=== PATIENT | male | born 1945 | race African-American/Black ===

== ENCOUNTER → 2017-01-29 | Outpatient (CLI) | payer OTHER ==
[~2017-01-29] MED LIST: LIPITOR20 MG PO; NORVASC5 MG PO; PLENDIL10 MG PO; PRILOSEC20 MG PO; TOPROL XL25 MG PO
[2017-01-29 16:43] LABS: POTASSIUM 3.7 mmol/L (3.5-5.1)
== END | disposition home or self-care (01) ==
LOC: LAB 14:23
PROVIDERS: Family Medicine
DX: I10 Essential (primary) hypertension (principal); E78.00 Pure hypercholesterolemia, unspecified

== ENCOUNTER → 2017-11-05 | Outpatient (CLI) | payer OTHER ==
[2017-11-05 10:54] LABS: ALBUMIN 3.5 gm/dl (3.1-4.5); BASO % 0.2 % (0.0-1.0); CREATININE 1.52 mg/dL (0.70-1.30); EOS # 0.1 10*3/uL (0.0-0.4); EOS % 1.4 % (1.0-4.0); HEMATOCRIT 40.4 % (42.0-52.0); HEMOGLOBIN 12.8 g/dl (14.0-18.0); LYMPH # 1.8 10*3/uL (1.3-4.4); LYMPH % 34.4 % (27.0-41.0); MEAN CELL VOLUME 81.5 fl (80.0-94.0); MEAN CORPUSCULAR HGB 25.8 pg (27.0-31.0); MEAN CORPUSCULAR HGB CONC 31.7 g/dl (33.0-37.0); MEAN PLATELET VOLUME 10.8 fl (9.6-12.3); MONO # 0.5 10*3/uL (0.1-1.0); MONO % 9.8 % (3.0-9.0); NEUT # 2.7 10*3/uL (2.3-7.9); PLATELET COUNT AUTOMATED 233 10*3/uL (130-400); POTASSIUM 3.5 mmol/L (3.5-5.1); RED BLOOD COUNT 4.96 10*6/uL (4.50-5.90); RED CELL DISTRI WIDTH 16.1 % (0-14.5); TOTAL PROTEIN 7.5 gm/dL (6.4-8.2); WHITE BLOOD COUNT 5.1 10*3/uL (4.8-10.8)
[2017-11-05 11:01] LABS: THYROID STIM HORMONE (HS) 1.76 uIU/ml (0.358-4.75)
== END | disposition home or self-care (01) ==
LOC: LAB 09:58
PROVIDERS: Family Medicine
DX: R53.82 Chronic fatigue, unspecified (principal); E78.00 Pure hypercholesterolemia, unspecified

== ENCOUNTER 2018-11-19 03:14 | Emergency (ER) | payer OTHER ==
[~2018-11-19] VITALS: Ht 180.3 cm; Wt 70.3 kg
--- NOTE | ~2018-11-19 | EKG ---
[place], [place] ELECTROCARDIOGRAM REPORT NAME: SREEKANTH DE ANDA UNIT #: [id number] ROOM: DOCTOR: EPIPHANY DRAFT REPORT BIRTHDATE: [birth year] [facility] Test Date: 2018-11-19 Test Time: 03:33:07 Pat Name: SREEKANTH DE ANDA Department: Room: Gender: M Sparker And Patcher: Geir Donahue : 1945 Requested By: LASHONDA MONAHAN Order Number: [id number] Reading MD: Raudel Holder MD Measurements Intervals [place] Rate: 65 P: 74 MT: 166 QRS: 42 QRSD: 84 T: 79 QT: 398 QTc: 414 Interpretive Statements Sinus rhythm Ventricular trigeminy Probable left atrial enlargement Inferior infarct, acute (RCA) Anterolateral infarct, age indeterminate Probable RV involvement, suggest recording right precordial leads Electronically Signed On 11-22-2018 7:53:48 PDT by Raudel Holder MD CM:EKGRPT:ELECTROCARDIOGRAM REPORT [id number] LASHONDA MONAHAN MD EPIPHANY DRAFT REPORT LASHONDA MONAHAN MD
--- NOTE | ~2018-11-19 | EKG ---
[place], [place] ELECTROCARDIOGRAM REPORT NAME: SREEKANTH DE ANDA UNIT #: [id number] ROOM: DOCTOR: EPIPHANY DRAFT REPORT BIRTHDATE: [birth year] [facility] Test Date: 2018-11-19 Test Time: 03:21:45 Pat Name: SREEKANTH DE ANDA Department: Room: Gender: Kiln Hand: Geri Donahue : 1945 Requested By: LASHONDA MONAHAN Order Number: [id number] Reading MD: Raudel Holder MD Measurements Intervals [place] Rate: 64 P: 81 CO: 160 QRS: 57 QRSD: 94 T: 81 QT: 407 QTc: 420 Interpretive Statements Sinus rhythm Ventricular bigeminy Left ventricular hypertrophy Inferior infarct, acute (RCA) Probable RV involvement, suggest recording right precordial leads Electronically Signed On 11-22-2018 7:53:25 PDT by Raudel Holder MD CM:EKGRPT:ELECTROCARDIOGRAM REPORT [id number] LASHONDA MONAHAN MD EPIPHANY DRAFT REPORT LASHONDA MONAHAN MD
--- NOTE | ~2018-11-19 | EKG ---
[place], [place] ELECTROCARDIOGRAM REPORT NAME: SREEKANTH DE ANDA UNIT #: [id number] ROOM: DOCTOR: EPIPHANY DRAFT REPORT BIRTHDATE: [birth year] [facility] Test Date: 2018-11-19 Test Time: 04:19:30 Pat Name: SREEKANTH DE ANDA Department: Room: Gender: Medical Accounting Clerk: : 1945 Requested By: LASHONDA MONAHAN Order Number: [id number] Reading MD: Raudel Holder MD Measurements Intervals [place] Rate: 63 P: 73 WV: 162 QRS: 57 QRSD: 90 T: 82 QT: 403 QTc: 413 Interpretive Statements Sinus rhythm Multiple ventricular premature complexes Probable left atrial enlargement LVH with secondary repolarization abnormality Inferoposterior infarct, acute (RCA) Anterior infarct, old Probable RV involvement, suggest recording right precordial leads Electronically Signed On 11-22-2018 7:53:54 PDT by Raudel Holder MD CM:EKGRPT:ELECTROCARDIOGRAM REPORT [id number] LASHONDA MONAHAN MD EPIPHANY DRAFT REPORT LASHONDA MONAHAN MD
[2018-11-19 03:34] LABS: BASO % 0.2 % (0.0-1.0); EOS # 0.1 10*3/uL (0.0-0.4); EOS % 0.8 % (1.0-4.0); HEMATOCRIT 40.9 % (42.0-52.0); HEMOGLOBIN 13.2 g/dl (14.0-18.0); LYMPH # 2.8 10*3/uL (1.3-4.4); LYMPH % 30.1 % (27.0-41.0); MEAN CELL VOLUME 82.1 fl (80.0-94.0); MEAN CORPUSCULAR HGB 26.5 pg (27.0-31.0); MEAN CORPUSCULAR HGB CONC 32.3 g/dl (33.0-37.0); MEAN PLATELET VOLUME 10.4 fl (9.6-12.3); MONO # 0.7 10*3/uL (0.1-1.0); MONO % 7.5 % (3.0-9.0); NEUT # 5.7 10*3/uL (2.3-7.9); NEUT % 61.1 % (47.0-73.0); PLATELET COUNT AUTOMATED 260 10*3/uL (130-400); RED BLOOD COUNT 4.98 10*6/uL (4.50-5.90); RED CELL DISTRI WIDTH 16.6 % (0-14.5); WHITE BLOOD COUNT 9.3 10*3/uL (4.8-10.8)
[2018-11-19 04:02] LABS: ACT PARTIAL THROMBO TIME 22.8 SECONDS (20.8-31.5)
[2018-11-19 04:09] LABS: ALBUMIN 3.6 gm/dl (3.1-4.5); CREATININE 1.46 mg/dL (0.70-1.30); POTASSIUM 3.5 mmol/L (3.5-5.1); TOTAL PROTEIN 7.7 gm/dL (6.4-8.2)
[2018-11-19 04:11] LABS: TROPONIN I 0.061 ng/ml (<0.045)
[2019-01-11] MEDS ORDERED: IMDUR SA30 MG PO (14:14)
[2019-01-11] MEDS ORDERED: METOPROLOL SUCC25 M2 PO (14:15)
[2019-01-11] MEDS ORDERED: ATORVASTATIN CA40 M1 PO (14:15)
[2019-01-11] MEDS ORDERED: LORAZEPAM0.5 MG PO (14:16)
[2019-01-13] MEDS ORDERED: AMLODIPINE BESYL5 MG PO (08:08)
[2019-01-13] MEDS ORDERED: Isordil20 MG PO (08:08)
[2019-01-13] MEDS ORDERED: LISINOPRIL10 M1 PO (08:08)
[2019-01-13] MEDS ORDERED: VITAMIN D32000 UNI1 PO (08:08)
== END 2018-11-19 06:42 | disposition short-term general hospital (02) ==
LOC: ED 03:14
PROVIDERS: Emergency Medicine Emergency Medical Services
DX: I24.9 Acute ischemic heart disease, unspecified (principal); R11.10 Vomiting, unspecified; F17.200 Nicotine dependence, unspecified, uncomplicated; Z79.899 Other long term (current) drug therapy

== ENCOUNTER 2018-11-24 12:24 | Inpatient (IN) | payer OTHER ==
[~2018-11-24] VITALS: Ht 180.3 cm; Wt 65.4 kg
[2018-11-24] VITALS (8 sets, daily range): BP systolic 74–125; BP diastolic 52–81
--- NOTE | ~2018-11-24 | EKG ---
[place], [place] ELECTROCARDIOGRAM REPORT NAME: SREEKANTH DE ANDA UNIT #: [id number] ROOM: [facility] DOCTOR: MIRIAN DRAFT REPORT BIRTHDATE: [birth year] [facility] Test Date: 2018-11-24 Test Time: 15:38:06 Pat Name: SREEKANTH DE ANDA Department: Room: [facility] Gender: M Miner Helper: King Schaffer : 1945 Requested By: CAITY BUSTOS Order Number: [id number] Reading MD: Raudel Holder MD Measurements Intervals [place] Rate: 90 P: 60 AR: 146 QRS: 27 QRSD: 86 T: -5 QT: 395 QTc: 484 Interpretive Statements Sinus rhythm Ventricular bigeminy Left ventricular hypertrophy no longer present Myocardial infarct finding no longer present Electronically Signed On 11-25-2018 4:00:21 PDT by Raudel Holder MD CM:EKGRPT:ELECTROCARDIOGRAM REPORT [id number] CAITY WILKERSON DRAFT REPORT CAITY BUSTOS DO
--- NOTE | ~2018-11-24 | EKG ---
[place], [place] ELECTROCARDIOGRAM REPORT NAME: SREEKANTH DE ANDA UNIT #: [id number] ROOM: 502 DOCTOR: MIRIAN DRAFT REPORT BIRTHDATE: [birth year] [facility] Test Date: 2018-11-24 Test Time: 18:34:32 Pat Name: SREEKANTH DE ANDA Department: Room: [facility] Gender: M Medical Educator: King Schaffer : 1945 Requested By: CAITY BUSTOS Order Number: [id number] Reading MD: Raudel Holder MD Measurements Intervals [place] Rate: 62 P: 57 OR: 151 QRS: 23 QRSD: 83 T: -12 QT: 528 QTc: 537 Interpretive Statements Sinus rhythm Ventricular premature complex Probable LVH with secondary repol abnrm Prolonged QT interval Compared to ECG 11/19/2018 04:19:30 Prolonged QT interval now present Myocardial infarct finding no longer present Electronically Signed On 11-29-2018 7:54:37 PDT by Raudel Holder MD CM:EKGRPT:ELECTROCARDIOGRAM REPORT [id number] CAITY WILKERSON DRAFT REPORT CAITY BUSTOS DO
--- NOTE | ~2018-11-24 | CON ---
[place], [place] REPORT OF CONSULTATION NAME: SREEKANTH DE ANDA UNIT #: [id number] ROOM: [facility] DOCTOR: ROSELIA CHILDS MD BIRTHDATE: [birth year] DOS: 11/25/2018 HISTORY OF PRESENT ILLNESS: The patient is very well known to me, elderly gentleman who apparently had a non-ST acute coronary syndrome with ST changes, underwent emergent catheterization last week, basically underwent a stenting of the proximal LAD. The patient did extremely well post-intervention. His creatinine was baseline even the next day. The patient was given about 60 mL of dye. The patient was discharged home in a stable condition. Apparently, the patient did have some diarrhea 2 days ago and also becoming significantly hypotensive. He was on lisinopril, hydrochlorothiazide started by the PCP, which he was continuing. He called us with hypotension and was sent him to the Emergency Room to get evaluated, pressures were significantly low and because of hypotension, the patient's troponin was significantly elevated. The patient was in acute renal failure. The patient has been hydrated and he is improving significantly and the creatinine is improving and he is making urine. He did not have any chest discomfort. No syncope. I did a stat echocardiogram yesterday showed an excellent ejection fraction. No wall motion abnormality, significantly improved from before. No evidence of pericardial effusion or tamponade physiology. PAST MEDICAL HISTORY: Significant for a recent non-ST elevation myocardial infarction, acute coronary syndrome, hypertension and hyperlipidemia. HOME MEDICATIONS: Include Plendil, metoprolol, atorvastatin, lisinopril and hydrochlorothiazide. PAST SURGICAL HISTORY: Recent intervention, ____ surgery. FAMILY HISTORY: Positive for AK and CVA. REVIEW OF SYSTEMS: CONSTITUTIONAL: No fever, no chills. HEENT: No visual disturbance or hearing problems. CARDIOVASCULAR SYSTEM: As per HPI. No chest pain. RESPIRATORY: No shortness of breath. GASTROINTESTINAL: No nausea, no vomiting. GENITOURINARY: No dysuria. NEUROLOGIC: Stable. PHYSICAL EXAMINATION: GENERAL: The patient is alert, oriented x 3. VITAL SIGNS: Blood pressure today is much better 110/70. He is in sinus rhythm. NECK: Supple, no JVD. LUNGS: Clear. HEART: Sounds are regular. NEUROLOGICAL: Stable. LABORATORY DATA: Shows a bigeminal pattern. Echocardiogram revealed an excellent ejection fraction. [place], [place] REPORT OF CONSULTATION NAME: SREEKANTH DE ANDA UNIT #: [id number] ROOM: [facility] DOCTOR: AMADEO AGUDELO,ROSELIA BIRTHDATE: [birth year] LABORATORY DATA: On admission, his creatinine was significantly elevated, today it is much better. His hemoglobin 12.7, hematocrit 38.8. His right groin is stable. Sodium 138, BUN is 97, creatinine is 5.24 which is significantly improved. Troponin was 12 earlier and it is already down to 7.9. IMPRESSION: The acute coronary syndrome with a recent intervention with hypotension secondary to dehydration and diarrhea, elevated troponin, probably demand type secondary to hypotension and acute renal failure secondary to dehydration and hypotension. RECOMMENDATIONS: Discontinue the GIORGIO inhibitors, IV hydration aggressively as the ejection fraction is normal. Once the blood pressure is stable, start him back on the small dose of beta blockers like metoprolol 12.5 b.i.d. Continue the Brilinta and a baby aspirin as ordered. Monitor the renal function closely. Continue the lipid lowering agents and I will follow up. Discussed with the house staff in detail. ROSELAI CHILDS MD CM:CONSTR:REPORT OF CONSULTATION 0719 11/25/18 0750 interface
--- NOTE | ~2018-11-24 | EKG ---
[place], [place] ELECTROCARDIOGRAM REPORT NAME: SREEKANTH DE ANDA UNIT #: [id number] ROOM: [facility] DOCTOR: MIRIAN DRAFT REPORT BIRTHDATE: [birth year] [facility] Test Date: 2018-11-24 Test Time: 12:29:29 Pat Name: SREEKANTH DE ANDA Department: ER Room: [facility] Gender: M Vehicle Return Associate: King Schaffer : 1945 Requested By: CAITY BUSTOS Order Number: [id number] Reading MD: Raudel Holder MD Measurements Intervals [place] Rate: 68 P: 73 MN: 148 QRS: 36 QRSD: 84 T: 1 QT: 376 QTc: 400 Interpretive Statements Sinus rhythm Ventricular bigeminy Probable left atrial enlargement Repol abnrm suggests ischemia, anterolateral Compared to ECG 11/19/2018 04:19:30 Possible ischemia now present Left ventricular hypertrophy no longer present Myocardial infarct finding no longer present Electronically Signed On 11-25-2018 3:59:47 PDT by Raudel Holder MD CM:EKGRPT:ELECTROCARDIOGRAM REPORT [id number] CAITY WILKERSON DRAFT REPORT CAITY BUSTOS DO
[2018-11-24 13:01] LABS: BASO % 0.2 % (0.0-1.0); EOS % 0.3 % (1.0-4.0); HEMATOCRIT 42.4 % (42.0-52.0); HEMOGLOBIN 14.1 g/dl (14.0-18.0); LYMPH # 2.1 10*3/uL (1.3-4.4); LYMPH % 18.3 % (27.0-41.0); MEAN CELL VOLUME 79.5 fl (80.0-94.0); MEAN CORPUSCULAR HGB 26.5 pg (27.0-31.0); MEAN CORPUSCULAR HGB CONC 33.3 g/dl (33.0-37.0); MEAN PLATELET VOLUME 11.7 fl (9.6-12.3); MONO # 0.9 10*3/uL (0.1-1.0); MONO % 7.5 % (3.0-9.0); NEUT # 8.5 10*3/uL (2.3-7.9); NEUT % 73.1 % (47.0-73.0); PLATELET COUNT AUTOMATED 279 10*3/uL (130-400); RED BLOOD COUNT 5.33 10*6/uL (4.50-5.90); WHITE BLOOD COUNT 11.6 10*3/uL (4.8-10.8)
[2018-11-24 13:11] LABS: ACT PARTIAL THROMBO TIME 28.6 SECONDS (20.8-31.5); INTERNATIONAL NORM RATIO 0.9 (2.0-3.5)
--- NOTE | 2018-11-24 13:12 | NUR ---
NOTIFIED BY LAB PTS LACTIC ACID 2.5. DR BUSTOS NOTIFIED.
[2018-11-24 13:20] LABS: ALBUMIN 3.3 gm/dl (3.1-4.5); CREATININE 7.17 mg/dL (0.70-1.30); POTASSIUM 3.8 mmol/L (3.5-5.1); TOTAL PROTEIN 8.6 gm/dL (6.4-8.2)
[2018-11-24 13:24] LABS: TROPONIN I 12.5 ng/ml (<0.045)
--- NOTE | 2018-11-24 13:26 | NUR ---
NOTIFIED BY LAB PTS TROPONIN .. DR BUSTOS NOTIFIED.
--- NOTE | 2018-11-24 15:03 | NUR ---
PT RESTING IN BED FAMILY AT BEDSIDE NO COMPLAINTS AT THIS TIME
--- NOTE | 2018-11-24 15:03 | NUR ---
awaiting nurse to return to floor from another admission
--- NOTE | 2018-11-24 15:20 | NUR ---
A 73, admitted to ICCU, under the services of VINCENT Locke MD with a diagnosis of ARF/ hypotension. Chief complaint is felt as though his BP was low , weakness. Patient arrived via stretcher from ER. Monitor applied. Initial assessment completed. Vital signs taken and recorded. DR. BUZZ AGUDELO,VINCENT notified of admission to the unit. Orders received. See assessment for past medical history, medications and allergies. Patient and/or family oriented to unit. [facility] ICCU visitation policy reviewed. Clothing/patient valuable form completed. PRIYANKA MENARD
[2018-11-24] MEDS ORDERED: BRILINTA90 M1 PO (15:50)
[2018-11-24] MEDS ORDERED: ASPIRIN ADULT L81 M2 PO (15:50)
[2018-11-24] MEDS ORDERED: PANTOPRAZOLE SO40 MG PO (15:50)
[2018-11-24] MEDS ORDERED: LIPITOR40 MG PO (15:51)
[2018-11-24] MEDS ORDERED: ZESTORETIC 10-1 EACH PO (15:53)
--- NOTE | 2018-11-24 16:55 | NUR ---
Dr. Arce was notified of consult and orders were recieved. Dr. Lopez in discussed plan of care w/ pt. and family.
--- NOTE | 2018-11-24 20:05 | NUR ---
PATIENT VOIDED 100ML OF DARK AMENA COLORED URINE AT THIS TIME. PATIENT DENIES PAIN WITH URINATION OR HESITANCY. PATIENT WAS THEN BLADDER SCANNED FOR 15ML OF URINE.
--- NOTE | 2018-11-24 20:10 | NUR ---
CALL OUT TO DR PARRISH REGARDING 8PM LABS, PATIENT VOID AND BLADDER SCANNING. AWAITING RETURN CALL
[2018-11-24 20:13] LABS: ALBUMIN 2.9 gm/dl (3.1-4.5); CREATININE 6.76 mg/dL (0.70-1.30); PHOSPHOROUS 5.1 mg/dL (2.5-4.9); POTASSIUM 3.9 mmol/L (3.5-5.1)
[2018-11-24 20:39] LABS: BILIRUBIN NEGATIVE (NEGATIVE); BLOOD NEGATIVE (NEGATIVE); CLARITY CLEAR (CLEAR); COLOR YELLOW (YELLOW); GLUCOSE NEGATIVE (NEGATIVE); KETONE NEGATIVE (NEGATIVE); LEUKO ESTERASE NEGATIVE (NEGATIVE); NITRITE NEGATIVE (NEGATIVE); SPECIFIC GRAVITY 1.025 (1.005-1.030); UROBILINOGEN 0.2 E.U./dl (0.2-1.0)
[2018-11-24 20:49] LABS: BACTERIA 1+
--- NOTE | 2018-11-24 20:52 | NUR ---
SPOKE TO DR PARRISH REGARDING LABS, AND URINE OUTPUT. NO NEW ORDERS RECIEVED
--- NOTE | 2018-11-24 22:05 | NUR ---
PATIENT ATE BOWL OF TOMATOE SOUP AND 1/4TH OF HAMBURGER. PATIENT STATES "THIS IS THE MOST HE'S ATE IN A WHILE" DENIES ANY COMPLAINTS AT THIS TIME. RN WILL CONTINUE TO MONITOR
[2018-11-25] VITALS: BP 113/72
--- NOTE | 2018-11-25 01:05 | NUR ---
PATIENT RESTING QUIETLY WITH EYES CLOSED AT THIS TIME. DISPLAYS NO SIGNS OR SYMPTOMS OF DISTRESS, RESPIRATIONS ARE QUIET AND UNLABORERD ON ROOM AIR. VITAL SIGNS REMAIN WITHIN NORMAL LIMITS. CALL LIGHT IS WITHIN REACH OF THE PATIENT. RN WILL CONTINUE TO MONITOR
[2018-11-25 04:00] VITALS: BP 100/58
[2018-11-25 05:44] LABS: CREATININE 5.24 mg/dL (0.70-1.30); PHOSPHOROUS 4.6 mg/dL (2.5-4.9); POTASSIUM 3.7 mmol/L (3.5-5.1)
[2018-11-25 05:49] LABS: TROPONIN I 7.94 ng/ml (<0.045)
[2018-11-25 06:15] LABS: BASO % 0.2 % (0.0-1.0); EOS # 0.1 10*3/uL (0.0-0.4); EOS % 0.7 % (1.0-4.0); HEMATOCRIT 38.8 % (42.0-52.0); HEMOGLOBIN 12.7 g/dl (14.0-18.0); LYMPH # 1.4 10*3/uL (1.3-4.4); LYMPH % 16.9 % (27.0-41.0); MEAN CORPUSCULAR HGB 26.2 pg (27.0-31.0); MEAN CORPUSCULAR HGB CONC 32.7 g/dl (33.0-37.0); MEAN PLATELET VOLUME 11.8 fl (9.6-12.3); MONO # 0.6 10*3/uL (0.1-1.0); MONO % 7.7 % (3.0-9.0); NEUT # 6.2 10*3/uL (2.3-7.9); NEUT % 73.9 % (47.0-73.0); PLATELET COUNT AUTOMATED 244 10*3/uL (130-400); RED BLOOD COUNT 4.85 10*6/uL (4.50-5.90); RED CELL DISTRI WIDTH 15.9 % (0-14.5); WHITE BLOOD COUNT 8.3 10*3/uL (4.8-10.8)
[2018-11-25 08:00] VITALS: BP 115/70
--- NOTE | 2018-11-25 08:00 | NUR ---
ALERT AND ORIENTED X 3, IV FLUIDS CONTINUE IN LEFT ARM, NSR WITH PVCS ON MONITOR, UP TO RECLINER FOR BREAKFAST.
[2018-11-25 12:00] VITALS: BP 122/68
--- NOTE | 2018-11-25 12:00 | NUR ---
AMBULATING WITH PT, STEADY GAIT
--- NOTE | 2018-11-25 13:00 | NUR ---
RENAL IN TO SEE PT
--- NOTE | 2018-11-25 13:30 | NUR ---
IV FLUIDS DC'D
--- NOTE | 2018-11-25 14:30 | NUR ---
PHYSICAL THERAPY Patient evaluated in ICCU, full evaluation to follow. Continue with PT as per plan of care with fall, cardiac acute debility precautions. Home with home heal; Rn and PT prn. PAtient is moderate complexity via chart review, tests and evaluation: [id number]. Thank you for this referral. Claudette Chun,PT
--- NOTE | 2018-11-25 14:35 | NUR ---
Flyer Maker in to talk to patient. Patient states lives at HOME with FAMILY. There are FEW steps in the home. Physician: BUZZ Pharmacy: [facility] Home health services: [facility] Patient's level of ADLs: INDEPENDENT Patient has working utilities: YES DME: NONE Follow-up physician's appointment after d/c: WILL BE MADE BY HOSPITALIST NURSE DIRECTOR ON DISCHAGE Does patient want to access PORTAL?: NO Discharge plan PT STATES HE WILL GO HOME ON DISCHARGE. STATES NO NEEDS AT HOME. WILL CONTINUE TO FOLLOW. PT STATES HE WILL HAVE A RIDE HOME. . ALESSANDRA ROSS
--- NOTE | 2018-11-25 14:35 | NUR ---
Occupational Therapy evaluation completed in ICCU with full eval to follow. Precautions include ICCU, IV UE,recent VA with stents 11/19/18, cardiac precautions,low complexity level 07665 with chart review, testing and evaluation. Recommend no further OT at this time d/t I/VA level in self care and mobility . PT to address functional mobility and endurance. Thank you for this referral. Eloisa Colin OTR/L
[2018-11-25 16:00] VITALS: BP 118/77
[2018-11-25 20:00] VITALS: BP 122/68; BP 162/78
[2018-11-26] VITALS: BP 133/84
[2018-11-26 06:04] LABS: BASO % 0.2 % (0.0-1.0); EOS # 0.1 10*3/uL (0.0-0.4); EOS % 0.8 % (1.0-4.0); HEMATOCRIT 36.9 % (42.0-52.0); HEMOGLOBIN 11.9 g/dl (14.0-18.0); LYMPH # 1.2 10*3/uL (1.3-4.4); LYMPH % 18.2 % (27.0-41.0); MEAN CELL VOLUME 81.1 fl (80.0-94.0); MEAN CORPUSCULAR HGB 26.2 pg (27.0-31.0); MEAN CORPUSCULAR HGB CONC 32.2 g/dl (33.0-37.0); MEAN PLATELET VOLUME 11.7 fl (9.6-12.3); MONO # 0.6 10*3/uL (0.1-1.0); MONO % 9.2 % (3.0-9.0); NEUT # 4.5 10*3/uL (2.3-7.9); PLATELET COUNT AUTOMATED 228 10*3/uL (130-400); RED BLOOD COUNT 4.55 10*6/uL (4.50-5.90); RED CELL DISTRI WIDTH 15.9 % (0-14.5); WHITE BLOOD COUNT 6.3 10*3/uL (4.8-10.8)
[2018-11-26 08:00] VITALS: BP 138/70
--- NOTE | 2018-11-26 08:54 | NUR ---
PHYSICAL THERAPY informed consent given, pt identified by name and . pt presented supine in bed pulse 78 bpm, spO2 99% room air, BP 137/73. Supine to sit SBA. STS and stand to sit multiple times CGA. Staggered stance each foot in front 30 sec x2 SBA no LOB presented. Tandem stance each foot in front x1 30sec each, SBA pt able to correct self with LOB. Walked 50ft x1, 100ftx 1, 320ft x1 CGA, Faith for 1 LOB, seated and standing rests in between. during walks highest pulse read 122bpm. Ended treatment pt in bathroom. 1:1 treatment with POTTERY KILN BUILDER 15min. DEVANTE SANCHEZ POTTERY KILN BUILDER
[2018-11-26 09:21] LABS: CREATININE 2.7 mg/dL (0.70-1.30)
[2018-11-26 12:00] VITALS: BP 128/78
--- NOTE | 2018-11-26 13:28 | NUR ---
PT CONTINUES TO DENY ANY HOME NEEDS ON DISCHARGE. WILL CONTINUE TO FOLLOW.
--- NOTE | 2018-11-26 14:52 | NUR ---
[facility] Discharge instructions reviewed with patient/family. Patient receptive and verbalizes understanding. Follow-up care arranged. Written instructions given to patient/family. AVA FRAZIER
--- NOTE | 2018-11-30 07:51 | NUR ---
PHYSICAL THERAPY CO-SIGN I approve of the Phyical Therapy notes written above. MICHELLE ARAUJO PT
[2019-01-11] MEDS ORDERED: IMDUR SA30 MG PO (14:14)
[2019-01-11] MEDS ORDERED: ATORVASTATIN CA40 M1 PO (14:15)
[2019-01-11] MEDS ORDERED: METOPROLOL SUCC25 M2 PO (14:15)
[2019-01-11] MEDS ORDERED: LORAZEPAM0.5 MG PO (14:16)
[2019-01-13] MEDS ORDERED: AMLODIPINE BESYL5 MG PO (08:08)
[2019-01-13] MEDS ORDERED: Isordil20 MG PO (08:08)
[2019-01-13] MEDS ORDERED: LISINOPRIL10 M1 PO (08:08)
[2019-01-13] MEDS ORDERED: VITAMIN D32000 UNI1 PO (08:08)
== END 2018-11-26 14:52 | disposition home or self-care (01) | DRG 314 ==
LOC: ED 12:24 → EDHOLD 14:01 → ICCU 14:01 → 5E 11-25 19:53
PROVIDERS: Emergency Medicine; Family Medicine; Internal Medicine; Internal Medicine Nephrology; ADMIT Family Medicine
DX: I95.9 Hypotension, unspecified (principal); N17.0 Acute kidney failure with tubular necrosis; E87.1 Hypo-osmolality and hyponatremia; E44.1 Mild protein-calorie malnutrition; E87.2 Acidosis; I25.10 Atherosclerotic heart disease of native coronary artery without angina pectoris; E83.41 Hypermagnesemia; R74.0 Nonspecific elevation of levels of transaminase and lactic acid dehydrogenase [LDH]; F17.210 Nicotine dependence, cigarettes, uncomplicated; D64.9 Anemia, unspecified; E87.8 Other disorders of electrolyte and fluid balance, not elsewhere classified; E78.1 Pure hyperglyceridemia; R00.1 Bradycardia, unspecified; E86.0 Dehydration; N18.9 Chronic kidney disease, unspecified; Z83.3 Family history of diabetes mellitus; Z95.5 Presence of coronary angioplasty implant and graft; I25.2 Old myocardial infarction; Z82.49 Family history of ischemic heart disease and other diseases of the circulatory system; Z86.73 Personal history of transient ischemic attack (TIA), and cerebral infarction without residual deficits; Z80.52 Family history of malignant neoplasm of bladder; Z79.4 Long term (current) use of insulin; I12.9 Hypertensive chronic kidney disease with stage 1 through stage 4 chronic kidney disease, or unspecified chronic kidney disease; Z68.20 Body mass index [BMI] 20.0-20.9, adult

== ENCOUNTER → 2019-01-28 | Outpatient (CLI) | payer OTHER ==
[~2019-01-28] MED LIST changes: +AMLODIPINE BESYL5 MG PO; +ASPIRIN ADULT L81 M2 PO; +ATORVASTATIN CA40 M1 PO; +BRILINTA90 M1 PO; +IMDUR SA30 MG PO; +Isordil20 MG PO; +LIPITOR40 MG PO; +LISINOPRIL10 M1 PO; +LORAZEPAM0.5 MG PO; +METOPROLOL SUCC25 M2 PO; +PANTOPRAZOLE SO40 MG PO; +VITAMIN D32000 UNI1 PO; +ZESTORETIC 10-1 EACH PO
== END | disposition home or self-care (01) ==
LOC: RESCLI 01:16
DX: I25.10 Atherosclerotic heart disease of native coronary artery without angina pectoris (principal); I12.9 Hypertensive chronic kidney disease with stage 1 through stage 4 chronic kidney disease, or unspecified chronic kidney disease; N18.3 Chronic kidney disease, stage 3 (moderate); D64.9 Anemia, unspecified; E55.9 Vitamin D deficiency, unspecified; R00.1 Bradycardia, unspecified; E78.5 Hyperlipidemia, unspecified; K21.9 Gastro-esophageal reflux disease without esophagitis; C85.90 Non-Hodgkin lymphoma, unspecified, unspecified site; Z79.899 Other long term (current) drug therapy; Z88.8 Allergy status to other drugs, medicaments and biological substances